=== PATIENT | female | born 1980 | race Caucasian/White ===

== ENCOUNTER 2016-06-27 15:43 | Inpatient (IN) | payer OTHER ==
[~2016-06-27] VITALS: Ht 152.4 cm; Wt 90.7 kg
[2016-06-27 17:16] LABS: HEMOGLOBIN 13.4 gm/dl (12.3-15.3); RED BLOOD COUNT 4.58 M/UL (4.00-5.10); WHITE BLOOD COUNT 11.6 K/UL (4.5-11.0)
[2016-06-27 17:33] LABS: BUN/CREATININE RATIO 12 (0-10)
[2016-06-28] MEDS ORDERED: TRILEPTAL600 MG PO ×2 (00:42)
[2016-06-28] MEDS ORDERED: REMERON15 MG PO (00:43)
[2016-06-28] MEDS ORDERED: ZANTAC150 MG PO (00:48)
[2016-06-28] MEDS ORDERED: EFFEXOR XR 150150 MG PO (00:48)
[2016-06-28 06:04] LABS: HEMOGLOBIN 13.9 gm/dl (12.3-15.3); RED BLOOD COUNT 4.83 M/UL (4.00-5.10)
[2016-06-28 06:19] LABS: BUN/CREATININE RATIO 10 (0-10)
[2016-06-29 05:48] LABS: BUN/CREATININE RATIO 8 (0-10)
[2016-06-30 05:38] LABS: BUN/CREATININE RATIO 8 (0-10)
[2016-06-30] MEDS ORDERED: DOXYCYCLINE HY100 MG PO (14:30)
[2016-06-30] MEDS ORDERED: TYLENOL 325MG325 MG PO (14:31)
== END 2016-06-30 15:50 | disposition home or self-care (01) | DRG 580 ==
LOC: ER1 15:43 → ZEROF 22:25 → M/S 22:25
PROVIDERS: Emergency Medicine; Internal Medicine; Surgery; ADMIT Internal Medicine
PROC: 0J940ZZ Drainage of Right Neck Subcutaneous Tissue and Fascia, Open Approach (ICD-10-PCS; principal; 2016-06-28 13:15)
DX: L02.11 Cutaneous abscess of neck (principal); E87.1 Hypo-osmolality and hyponatremia; M27.2 Inflammatory conditions of jaws; E66.9 Obesity, unspecified; Z68.39 Body mass index [BMI] 39.0-39.9, adult; F17.210 Nicotine dependence, cigarettes, uncomplicated; R03.0 Elevated blood-pressure reading, without diagnosis of hypertension; F31.9 Bipolar disorder, unspecified; F43.10 Post-traumatic stress disorder, unspecified; T50.995A Adverse effect of other drugs, medicaments and biological substances, initial encounter; Y92.009 Unspecified place in unspecified non-institutional (private) residence as the place of occurrence of the external cause; B95.62 Methicillin resistant Staphylococcus aureus infection as the cause of diseases classified elsewhere; Z79.899 Other long term (current) drug therapy; Z88.1 Allergy status to other antibiotic agents
CPT/HCPCS: 36415; 71020; 76536; 80048; 80202; 81001; 82533; 82570; 83930; 83935; 84295; 84300; 84443; 84550; 84703; 85025; 87040; 87070; 87077; 87186; 87205; 94664; 96374; 96375; 99284; J1650; J2250; J2270; J2405; J3010; J3370; J7050; J7070; J7120